=== PATIENT | male | born 2000 | race Caucasian/White ===

== ENCOUNTER 2022-05-27 13:37 | Emergency (ER) | payer OTHER, BC ==
[~2022-05-27] VITALS: Ht 180.3 cm; Wt 75.0 kg
[2022-05-27 14:09] VITALS: BP 121/79
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
--- NOTE | 2022-05-27 14:45 | NUR ---
PT ON PHONE WITH [facility].
[2022-05-27] MEDS ORDERED: IBUP-1986 PO (14:53)
== END 2022-05-27 15:19 | disposition home or self-care (01) ==
LOC: ER 13:38
DX: M25.561 Pain in right knee (principal); V29.99XA Rider (driver) (passenger) of other motorcycle injured in unspecified traffic accident, initial encounter; Y93.89 Activity, other specified; Y92.89 Other specified places as the place of occurrence of the external cause; Y99.8 Other external cause status
CPT/HCPCS: 73564; 99283; A6449